=== PATIENT | female | born 1955 ===

== ENCOUNTER 2020-04-22 07:52 | Day surgery (SDC) | payer OTHER ==
[~2020-04-22 07:52] MED LIST: AMITRIPTYLINE H50 MG; ATACAND16 MG PO; ATORVASTATIN CA10 MG PO; BUDEPRION SR150 MG; CIPRO500 MG PO; CLONAZEPAM0.5 MG; ESOMEPRAZOLE MA40 MG PO; GABAPENTIN600 MG PO; GLIMEPIRIDE4 M1 PO; JANUMET 50-501 UDTAB; METFORMIN HCL1000 M2 PO; TENORMIN25 MG; TOPROL XL50 M1 PO
[2020-04-22] MEDS ORDERED: PERCOCET 5-3251 EACH PO (08:36)
[2020-04-22] MEDS ORDERED: ZOFRAN4 MG PO (08:37)
[2020-04-22] MEDS ORDERED: PANTOPRAZOLE SO40 MG PO (08:37)
[2020-04-22] MEDS ORDERED: DICLOFENAC SODI75 MG PO (08:38)
== END 2020-04-22 11:15 | disposition home or self-care (01) ==
LOC: CIR.AMB 07:52
PROVIDERS: ATTEND Surgery
DX: K81.1 Chronic cholecystitis (principal); Z20.828 Contact with and (suspected) exposure to other viral communicable diseases